=== PATIENT | male | born 1980 | race Caucasian/White ===

== ENCOUNTER 2021-02-09 08:39 | Emergency (ER) | payer BC ==
[~2021-02-09] VITALS: Ht 185.4 cm; Wt 87.2 kg
[2021-02-09] MEDS ORDERED: CYMBALTA30 MG (08:52)
[2021-02-09] MEDS ORDERED: VYVANSE60 MG (08:52)
[2021-02-09] MEDS ORDERED: KETOROLAC TROMETHAMINE 30 MG/ML VIAL IV STA (09:36)
[2021-02-09] MEDS ORDERED: DEXAMETHASONE SOD PHOS INJ 4 MG/ML VIAL IV ONE (09:45)
[2021-02-09] MEDS ORDERED: SODIUM CHLORIDE 0.9% 1000ML 1,000 ML IV SCH (09:45)
[2021-02-09] MEDS ORDERED: SODIUM CHLORIDE 0.9% 50ML 50 ML ONE (09:46)
[2021-02-09] MEDS ORDERED: IOPAMIDOL 370 MG/ML 200 ML INFUS..BTL INJ ONE (09:46)
[2021-02-09] MEDS ORDERED: KETOROLAC TROMETHAMINE 30 MG/ML VIAL ONE (09:51)
[2021-02-09] MEDS ORDERED: DEXAMETHASONE SOD PHOS INJ 4 MG/ML VIAL ONE (09:51)
[2021-02-09] MEDS ORDERED: AMPICILLIN SOD/SULBACTAM 3 GM VIAL ONE (11:55)
[2021-02-09] MEDS ORDERED: SODIUM CHLORIDE 0.9% 100 ML ONE (11:55)
[2021-02-09] MEDS ORDERED: METRONIDAZOLE 500MG/NS 100ML 100 ML IV ONE ×2 (11:55→12:00)
[2021-02-09] MEDS ORDERED: AMPICILLIN SOD/SULBACTAM 3GM 100 ML IV ONE (12:00)
[2021-02-09 12:23] VITALS: BP 115/63
== END 2021-02-09 13:20 | disposition other institution (70) ==
LOC: FSED 09:10
DX: R68.84 Jaw pain (principal); K12.2 Cellulitis and abscess of mouth; R22.1 Localized swelling, mass and lump, neck; R25.2 Cramp and spasm; M27.2 Inflammatory conditions of jaws
CPT/HCPCS: 70491; 80053; 85025; 99284; J0295; J1100; J1885; J7030; J7050; Q9967

== ENCOUNTER 2024-05-13 23:08 | Emergency (ER) | payer BC, OTHER ==
[~2024-05-13] VITALS: Ht 185.4 cm; Wt 79.4 kg
[~2024-05-13 23:08] MED LIST: CYMBALTA30 MG; VYVANSE60 MG
[2024-05-13 23:19] VITALS: TEMP 98.7
[2024-05-13] MEDS: SODIUM CHLORIDE 0.9% 1000ML 1,000 ML IV STA (23:43)
[2024-05-13 23:44] LABS: BASOPHILS % 0.4 % (0.0-1.0); EOSINOPHILS # (AUTO) 0.2 (0.0-0.4); EOSINOPHILS % 2.3 % (0.0-6.0); HEMOGLOBIN 13.7 g/dL (14.0-18.0); LYMPHOCYTES # (AUTO) 1.7 (1.0-3.2); LYMPHOCYTES % 21.1 % (18.0-39.1); MEAN CORPUSCULAR HEMOGLOBIN 29.7 pg (28-32); MEAN CORPUSCULAR HGB CONC 33.4 g/dL (31-35); MEAN CORPUSCULAR VOLUME 88.7 fL (81-99); MONOCYTES # (AUTO) 0.7 (0.2-0.8); MONOCYTES % 8.2 % (4.4-11.3); NEUTROPHILS # (AUTO) 5.4 (2.1-6.9); NEUTROPHILS % 67.9 % (38.7-80.0); PLATELET COUNT 158 x10e3/uL (140-360); RED BLOOD COUNT 4.62 x10e6/uL (4.3-5.7); RED CELL DISTRIBUTION WIDTH 12.2 % (11.7-14.4); WHITE BLOOD COUNT 7.93 x10e3/uL (4.8-10.8)
[2024-05-14 00:03] LABS: ALBUMIN 3.9 g/dL (3.5-5.0); ALBUMIN/GLOBULIN RATIO 1.4 (0.8-2.0); ANION GAP 13.4 mmol/L (8-16); BILIRUBIN,TOTAL 0.4 mg/dL (0.2-1.2); CALCIUM 9.1 mg/dL (8.4-10.2); TOTAL PROTEIN 6.6 g/dL (6.5-8.1)
[2024-05-14 00:04] LABS: POTASSIUM 3.4 mmol/L (3.5-5.1)
[2024-05-14 00:18] LABS: CREATININE, SERUM 0.87 mg/dL (0.72-1.25)
[2024-05-14] MEDS: SODIUM CHLORIDE 0.9% 1000ML 1,000 ML IV STA (00:46)
[2024-05-14 01:09] LABS: TROPONIN I 0.001 ng/mL (0-0.300)
[2024-05-14] MEDS: DIAZEPAM INJ 5 MG/ML 2 ML IV STA (01:21)
[2024-05-14 01:57] LABS: BENZODIAZEPINES SCREEN,URINE NEGATIVE (NEGATIVE); CANNABINOIDS SCREEN,URINE POSITIVE (NEGATIVE); METHADONE SCREEN, URINE NEGATIVE (NEGATIVE); OPIATES SCREEN,URINE NEGATIVE (NEGATIVE); PHENCYCLIDINE SCREEN,URINE NEGATIVE (NEGATIVE)
[2024-05-14 01:58] LABS: AMPHETAMINES SCREEN,URINE POSITIVE (NEGATIVE)
[2024-05-14 02:12] VITALS: PULSE 59; RESP 16; O2SAT 100
== END 2024-05-14 02:10 | disposition home or self-care (01) ==
LOC: ER 23:16
DX: R06.02 Shortness of breath (principal); T50.7X5A Adverse effect of analeptics and opioid receptor antagonists, initial encounter; M79.10 Myalgia, unspecified site; G62.9 Polyneuropathy, unspecified; F90.9 Attention-deficit hyperactivity disorder, unspecified type
CPT/HCPCS: 36415; 71045; 80053; 80307; 82550; 83690; 84484; 85025; 87400; 93005; 99284; J3360; J7030; U0002